=== PATIENT | female | born 2005 | race Caucasian/White ===

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

== ENCOUNTER 2024-02-18 09:16 | Emergency (ER) | payer OTHER, SELFPAY ==
[2024-02-18 09:21] VITALS: BP 129/91
[2024-02-18 10:11] VITALS: BP 141/90
[2024-02-18 10:17] VITALS: BP 141/90; BMI 25.9
--- NOTE | 2024-02-18 10:40 | ED.GENMED ---
History of Present Illness
General
Chief Complaint: Chest Pain
Source: patient
Exam Limitations: none
Time Seen by Provider: 02/18/24 10:08
Nursing documentation reviewed up to this point in time: agreed with
History of Present Illness
History of Present Illness:
18-year-old female past medical history of bipolar depression, diabetes, GERD presenting to the emergency department today with concerns of central chest pressure slightly made worse with palpation starting yesterday. Seem to improve when drinking
water yesterday recurred today. Denies similar symptoms in the past. Denies any recent trauma surgery immobilization, blood clots, leg swelling, estrogen product usage. Denies any associated shortness of breath nausea vomiting diaphoresis.
Past History
Past History
ED Past Medical History: HTN and IDDM
ED Past Surgical History: None
Social History
Tobacco: Vaping
Alcohol: Occasional
Drug: Marijuana
Personal: Single
Living: other ([facility] independent living)
Review of Systems
Review of Systems
Allergies reviewed?: Yes
All Other Systems: ROS reviewed and negative except as documented in HPI and ROS
Phy Exam
Physical Exam
Physical Exam:
GENERAL: Alert , in no apparent distress
EYE: pupils equal and reactive
NECK: Supple, no significant adenopathy.
ENT: o/p clr, mmm.
CARDIAC: Regular rate and rhythm .
LUNGS: Clear breath sounds bilaterally, no acute respiratory distress, no wheezes/rales/rhonchi
ABDOMEN: Soft, without focal tenderness, no r/g, no cvat
NEUROLOGICAL: Alert and oriented, no focal neuro deficits
SKIN: Warm and dry, skin intact.
MUSCULOSKELETAL: No edema, well perfused.
PSYCH: Normal and appropriate interaction.
Scores
Heart Score for Chest Pain Patients
STEMI patient?: No
History: Slightly or Non-Suspicious
ECG: Normal
Age: </= 45 years
Risk Factors: 1 or 2 Risk Factors
Troponin: </= Normal Limit
Heart Score for Chest Pain Patients: 1
Heart Score Risk: 2.5% MACE over next 6 weeks
Course
Orders/Labs/Results
Orders:
Orders
02/18/24 09:17
Electrocardiogram (*1) Urgent
Reason for Study: Chest Pain
EKG- Treatment ONCE
02/18/24 10:33
Mag Hydrox/Al Hydrox/Simeth [Maalox] 30 ml Phenobarb/Hyoscy/Atropine/Scop [] 10 ml PO NOW
CR Chest - 2 Views Urgent
Comment:
Reason For Exam: central cp
02/18/24 10:35
Comprehensive Metabolic Panel Urgent
Magnesium Urgent
02/18/24 10:36
Complete Blood Count/With Diff Urgent
Troponin I Urgent
02/18/24 10:40
Mag Hydrox/Al Hydrox/Simeth [Maalox] 30 ml .ROUTE .STK-MED ONE
Phenobarb/Hyoscy/Atropine/Scop [] 10 ml .ROUTE .STK-MED ONE
Abnormal Lab Results
02/18/24 02/18/24
10:35 10:36
Abs Immat Gran (auto) 0.1 H 10^3/uL
(0-0.05)
Absolute Neuts (auto) 6.8 H 10^3/uL
(1.4-6.5)
Immature Gran % 0.6 H %
(0-0.5)
Glucose 107 H mg/dl
(70-99)
AST 44 H U/L
(14-36)
ALT 76 H U/L
(0-35)
02/18/24 10:36
02/18/24 10:35
Vital Signs
Initial and Last Documented VS:
Initial Vital Signs
Temp Pulse Resp BP Pulse Ox
97.7 F 60 16 129/91 98
02/18/24 09:21 02/18/24 09:21 02/18/24 09:21 02/18/24 09:21 02/18/24 09:21
Last Documented Vital Signs
Temp Pulse Resp BP Pulse Ox
98.5 F 75 12 141/90 99
02/18/24 10:17 02/18/24 10:17 02/18/24 10:17 02/18/24 10:17 02/18/24 10:17
MDM/Problems Addressed
MDM/Problems Addressed:
18-year-old female presenting to the emergency department today with concerns of central chest pressure starting yesterday improved after drinking water yesterday but recurring today. Denies associated nausea vomiting shortness of breath
diaphoresis. No exertional component. Denies similar symptoms in the past. Denies specific palliation or provocation. Examination seems to be worse with palpation. Vital signs here are normal. Very low risk for PE and is PERC negative. EKG
normal. Labs unremarkable troponin negative. Life threats very unlikely in the circumstance. Patient did feel better after receiving GI cocktail. Patient may have a GI source. Plan for close outpatient follow-up and otherwise stable for
discharge. Return precautions given.
*Critical Care Note
Total Time (30-74mins, 75-104mins- exclusive of procedures): Not Applicable
ED Attending Note
-
Portions of this chart may have been created with voice recognition software.� Occasional wrong word or��sound alike� substitutions may have occurred due to the inherent limitations of voice recognition software.
Discharge Plan
Departure
Patient Disposition: Home (Routine Discharge)
Date of Disposition: 02/18/24
Time of Disposition: 12:53
Patient with high blood pressure during this ER visit?: No
Condition: Good
Covid-19: Not Applicable
Discharge Problem:
Chest pain, Elevated liver enzymes
Instructions: Chest Pain PCP Follow Up
Prescriptions:
New
famotidine 20 mg tablet
20 mg PO BID 4 Days Qty: 8 0RF
No Action
glipizide 5 mg Tablet
5 mg PO BID
Trulicity 4.5 mg/0.5 mL Pen Injector
4.5 mg SC MO@2200
acetaminophen [Tylenol] 325 mg Tablet
650 mg PO BIDPRN PRN (Reason: mild pain)
ketoconazole 2 % Shampoo
1 applic TOPICAL .2 TIMES A WEEK
famotidine 40 mg Tablet
40 mg PO HS
melatonin 5 mg Tablet
5 mg PO HS
glipizide 5 mg tablet
5 mg PO DAILY Qty: 30 0RF
Referrals:
Rhea Almendarez CRNP [Family Provider] -
Activity Restrictions/Additional Instructions:
You came to the emergency department with concerns of chest discomfort. You had a reassuring workup here. Please take prescribed medication follow close with the primary care doctor within 1 week. Return to the emergency department for any
worsening, new or concerning symptoms.
Interventions
Interventions:
*Risk Screen - Suicide Last Done: 02/18/24 09:23
*General Assessment Last Done: 02/18/24 10:17
*Neglect/Abuse Screening Last Done: 02/18/24 09:23
ED- Fall Risk Assessment Last Done: 02/18/24 10:17
*ED COVID-19 Vaccine History Last Done: 02/18/24 09:23
ED- Cardiac Assessment Last Done: 02/18/24 10:17
Discharge Date and Time
Print Language: YEMENI
[2024-02-18] MEDS: MAALOX 40 PO (10:43)
[2024-02-18 10:57] LABS: % Basophils 0.7 % (0-2); % Eosinophils 0.7 % (0-6); % Immature Granulocytes 0.6 % (0-0.5); % Lymphocytes 23.5 % (20.5-51.1); % Monocytes 4.9 % (1.7-9.3); % Neutrophils 69.6 % (42.2-75.2); Absolute Basophils 0.1 10^3/uL (0-0.2); Absolute Eosinophils 0.1 10^3/uL (0-0.7); Absolute Immature Granulocytes 0.1 10^3/uL (0-0.05); Absolute Lymphocytes 2.3 10^3/uL (1.2-3.4); Absolute Monocytes 0.5 10^3/uL (0.1-0.6); Absolute Neutrophils 6.8 10^3/uL (1.4-6.5); Hematocrit 42.3 % (37.0-47.0); Hemoglobin 14.5 g/dL (12.0-16.0); Mean Corp Hgb Conc. 34.3 g/dL (33.0-37.0); Mean Corpuscular Hgb 29.1 pg (27.0-31.0); Mean Corpuscular Volume 84.8 fL (81.0-99.0); Mean Platelet Volume 9.6 fL (7.4-10.4); Nucleated Red Blood Cells % 0 %; Platelet Count 273 10^3/uL (130-400); Red Blood Cell Count 4.99 10^6/uL (4.20-5.40); Red Cell Dist. Width 12.4 % (11.5-14.5); White Blood Cell Count 9.8 10^3/uL (4.8-10.8)
[2024-02-18 11:06] LABS: ALT (SGPT) 76 U/L (0-35); AST (SGOT) 44 U/L (14-36); Albumin 4.5 g/dl (3.5-5.0); Alkaline Phosphatase 78 U/L (38-126); Blood Urea Nitrogen 10 mg/dl (7-17); Calcium 9.3 mg/dl (8.4-10.2); Carbon Dioxide 25 mmol/L (22-30); Chloride 103 mmol/L (98-107); Estimated Creatinine Clearance > 125 ml/min; Glucose 107 mg/dl (70-99); Potassium 4.2 mmol/L (3.5-5.1); Sodium 140 mmol/L (135-145); Total Bilirubin 0.5 mg/dl (0.2-1.3); Total Protein 7.7 g/dl (6.3-8.2); eGFR > 60.00
[2024-02-18 11:18] LABS: Troponin I < 0.012 ng/ml
--- NOTE | 2024-02-18 12:13 | EDRN ---
the pt is resting in stretcher in the lowest position, side rails up x2, call sales within reach, HOB elevated, no s/s of distress, the pt stated to this RN that their substernal chest pain is 'gone', provider notified, will continue to monitor the
pt closely
[2024-02-18 13:11] VITALS: BP 136/71
== END 2024-02-18 13:12 | disposition home or self-care (01) ==
LOC: EMR 09:16
PROVIDERS: Physician Assistant; EMERGENCY PHYSICIAN Emergency Medicine; FAMILY PHYSICIAN Registered Nurse Pediatrics
DX: R07.89 Other chest pain (principal); R74.8 Abnormal levels of other serum enzymes; E11.9 Type 2 diabetes mellitus without complications; I10 Essential (primary) hypertension; K21.9 Gastro-esophageal reflux disease without esophagitis; F17.290 Nicotine dependence, other tobacco product, uncomplicated; Z79.4 Long term (current) use of insulin
CPT/HCPCS: 99285; 71046; 80053; 83735; 84484; 85025; 93005

== ENCOUNTER → 2024-03-09 13:40 | Outpatient (REF) | payer OTHER, SELFPAY | LOC: RAD 13:40 | PROVIDERS: ATTENDING PHYSICIAN Nurse Practitioner Family; FAMILY PHYSICIAN Pediatrics | DX: N93.9 Abnormal uterine and vaginal bleeding, unspecified (principal) | CPT/HCPCS: 76856 ==

== ENCOUNTER 2024-08-18 19:00 | Emergency (ER) | payer OTHER, SELFPAY ==
[2024-08-18 19:02] VITALS: BP 154/96
[2024-08-18 19:19] LABS: % Basophils 0.9 % (0-2); % Eosinophils 2.1 % (0-6); % Immature Granulocytes 0.6 % (0-0.5); % Lymphocytes 26.3 % (20.5-51.1); % Monocytes 6.1 % (1.7-9.3); Absolute Basophils 0.1 10^3/uL (0-0.2); Absolute Eosinophils 0.2 10^3/uL (0-0.7); Absolute Immature Granulocytes 0.1 10^3/uL (0-0.05); Absolute Lymphocytes 2.7 10^3/uL (1.2-3.4); Absolute Monocytes 0.6 10^3/uL (0.1-0.6); Absolute Neutrophils 6.6 10^3/uL (1.4-6.5); Hematocrit 40.8 % (37.0-47.0); Hemoglobin 14.4 g/dL (12.0-16.0); Mean Corp Hgb Conc. 35.3 g/dL (33.0-37.0); Mean Corpuscular Hgb 28.8 pg (27.0-31.0); Mean Corpuscular Volume 81.6 fL (81.0-99.0); Mean Platelet Volume 9.9 fL (7.4-10.4); Nucleated Red Blood Cells % 0 %; Platelet Count 255 10^3/uL (130-400); Red Cell Dist. Width 12.5 % (11.5-14.5); White Blood Cell Count 10.3 10^3/uL (4.8-10.8)
[2024-08-18 19:30] LABS: Venous Blood Gas B.E. 3.3 mmol/L (-4 to +4); Venous Blood Gas HCO3 27.8 mmol/L (22-27); Venous Blood Gas O2 Sat % 97.8 %; Venous Blood Gas pCO2 41 mmHg (35-48); Venous Blood Gas pH 7.44 (7.32-7.43); Venous Blood Gas pO2 90 mmHg (30-50)
[2024-08-18 19:32] LABS: Lactic Acid 1.3 mmol/L (0.7-2.0)
[2024-08-18 19:37] LABS: ALT (SGPT) 108 U/L (0-35); AST (SGOT) 75 U/L (14-36); Albumin 4.6 g/dl (3.5-5.0); Alkaline Phosphatase 79 U/L (38-126); Blood Urea Nitrogen 11 mg/dl (7-17); Calcium 9.7 mg/dl (8.4-10.2); Carbon Dioxide 27 mmol/L (22-30); Chloride 104 mmol/L (98-107); Glucose 198 mg/dl (70-99); Potassium 4.5 mmol/L (3.5-5.1); Sodium 139 mmol/L (135-145); Total Bilirubin 0.6 mg/dl (0.2-1.3); Total Protein 8.4 g/dl (6.3-8.2); eGFR > 60.00
[2024-08-18 19:43] LABS: B-Hydroxybutyrate 0.13 mmol/L (0.02-0.27)
--- NOTE | 2024-08-18 22:21 | ED.GENMED ---
History of Present Illness
General
Chief Complaint: Blood Sugar Problem
Source: patient
Exam Limitations: none
Time Seen by Provider: 08/18/24 21:44
Nursing documentation reviewed up to this point in time: agreed with
History of Present Illness
History of Present Illness:
The patient is a 19-year-old female who reports ongoing cough for 2 weeks. Patient denies fever. Additionally, patient reports her blood sugar has been elevated. She reports yesterday it was in the 300 range. Patient does admit that she is not
always compliant with her diabetic medication. She reports that she will call her doctor to get back on track. She denies nausea, vomiting and diarrhea. She denies rash.
Past History
Past History
ED Past Medical History: HTN, NIDDM and Psychiatric
ED Past Surgical History: Cholecystectomy
Social History
Tobacco: Vaping
Alcohol: Occasional
Drug: Marijuana
Personal: Single
Living: other ([facility] independent living)
Employment: Other
Family History
Family History: Other
Review of Systems
Review of Systems
Allergies reviewed?: Yes
All Other Systems: ROS reviewed and negative except as documented in HPI and ROS
Constitutional: Reports no symptoms
EENT: Reports no symptoms
Respiratory: Reports cough
Cardiac: Reports no symptoms
ABD/GI: Reports no symptoms
: Reports no symptoms
Musculoskeletal: Reports no symptoms
Skin: Reports no symptoms
Neurological: Reports no symptoms
Endocrine: Reports no symptoms
Hematologic/Lymphatic: Reports no symptoms
Psychiatric: Reports no symptoms
Phy Exam
Physical Exam
Physical Exam:
Physical Exam
General: no apparent distress, not acutely ill. Comfortable appearing
Neck: supple. no meningeal signs. normal psoterior pharynx
Heart: s1/s2 regular rate and rhythm, no murmur. equal radial pulses.
Lungs: no acute respiratory distress. clear bilaterally
Abdomen: normal bowel sounds. not tender. no CVAT
Neuro: alert and oriented. no focal neurological deficits
Skin: no rash
Psychiatric: well kept. interactive and cooperative
Extremities: no edema. no calf tenderness. negative homans. good distal pulses
Course
Orders/Labs/Results
Orders:
Orders
08/18/24 19:05
CR Chest - 2 Views Urgent
Comment:
Reason For Exam: cough
08/18/24 19:11
B-Hydroxybutyrate Urgent
Complete Blood Count/With Diff Urgent
Comprehensive Metabolic Panel Urgent
Lactic Acid Urgent
Venous Blood Gas Urgent
%Oxygen/Room Air: room air
08/18/24 22:20
Azithromycin [Zithromax] 500 mg PO NOW STA
Abnormal Lab Results
08/18/24
19:11
Abs Immat Gran (auto) 0.1 H 10^3/uL
(0-0.05)
Absolute Neuts (auto) 6.6 H 10^3/uL
(1.4-6.5)
Immature Gran % 0.6 H %
(0-0.5)
VBG pH 7.44 H
(7.32-7.43)
VBG pO2 90 H mmHg
(30-50)
VBG HCO3 27.8 H mmol/L
(22-27)
Glucose 198 H mg/dl
(70-99)
AST 75 H U/L
(14-36)
ALT 108 H U/L
(0-35)
Total Protein 8.4 H g/dl
(6.3-8.2)
08/18/24 19:11
08/18/24 19:11
Vital Signs
Initial and Last Documented VS:
Initial Vital Signs
Temp Pulse Resp BP Pulse Ox
97.5 F 103 20 154/96 98
08/18/24 19:02 08/18/24 19:02 08/18/24 19:02 08/18/24 19:02 08/18/24 19:02
Last Documented Vital Signs
Temp Pulse Resp BP Pulse Ox
97.5 F 103 20 154/96 98
08/18/24 19:02 08/18/24 19:02 08/18/24 19:02 08/18/24 19:02 08/18/24 22:09
MDM/Problems Addressed
Differential Diagnosis Includes:
Diabetic ketoacidosis, diabetic hyperglycemia without ketoacidosis, pneumonia
MDM/Problems Addressed:
Patient presents with 2 weeks of cough no acutely elevated blood sugar
Chronic conditions affecting care:
Diabetes
Chronic conditions affecting care: DM
Acute Exacerbation and/or Progression of Chronic Illness: DM
*Radiology
Radiology exam reviewed: preliminary read by ED provider (Possible right middle lobe pneumonia) and radiology read reviewed
*Pulse Oximetry
Patient hypoxic: no
*EKG
Interpreted by ED Provider?: NA
*Booking Agent Interpretation
Rate: Booking Agent- N/A
*Critical Care Note
Total Time (30-74mins, 75-104mins- exclusive of procedures): Not Applicable
Data Reviewed
Source: patient
Patient Management
Social determinants of health affecting care: Living situation and Strong social support
Escalation/DeEscalation of care consider admission/obs:
There is no sign of DKA on patient's blood work and patient appears extremely well and nontoxic.
ED Attending Note
-
Portions of this chart may have been created with voice recognition software.� Occasional wrong word or��sound alike� substitutions may have occurred due to the inherent limitations of voice recognition software.
Discharge Plan
Departure
Patient Disposition: Home (Routine Discharge)
Date of Disposition: 08/18/24
Time of Disposition: 22:21
Patient with high blood pressure during this ER visit?: Yes
Condition: Good
Covid-19: Not Applicable
Discharge Problem:
Pneumonia, Diabetes mellitus with hyperglycemia
Instructions: Type 2 diabetes - Discharge instructions, Pneumonia in adults - ED discharge instructions, BLOOD PRESSURE
Prescriptions:
New
azithromycin 250 mg tablet
250 mg PO DAILY 4 Days Qty: 4 0RF
No Action
glipizide 5 mg Tablet
5 mg PO BID
Trulicity 4.5 mg/0.5 mL Pen Injector
4.5 mg SC MO@2200
acetaminophen [Tylenol] 325 mg Tablet
650 mg PO BIDPRN PRN (Reason: mild pain)
ketoconazole 2 % Shampoo
1 applic TOPICAL .2 TIMES A WEEK
famotidine 40 mg Tablet
40 mg PO HS
melatonin 5 mg Tablet
5 mg PO HS
glipizide 5 mg tablet
5 mg PO DAILY Qty: 30 0RF
famotidine 20 mg tablet
20 mg PO BID 4 Days Qty: 8 0RF
Referrals:
UNKNOWN - PT DOES,NOT KNOW [Family Provider]
Activity Restrictions/Additional Instructions:
Please call your primary care doctor this Wednesday to go over your medications that you are supposed to be on and to get any prescriptions called in for you.
Interventions
Interventions:
*Risk Screen - Suicide Last Done: 08/18/24 22:27
*General Assessment Last Done: 08/18/24 19:02
*Neglect/Abuse Screening Last Done: 08/18/24 22:27
*ED COVID-19 Vaccine History Last Done: 08/18/24 22:07
*Nursing Disposition Last Done: 08/18/24 22:27
ED- Neurological Assessment Last Done: 08/18/24 22:07
Discharge Date and Time
Discharge Date/Time: 08/18/24 22:28
Print Language: LAO
[2024-08-18] MEDS: ZITHROMAX 500 MG PO (22:25)
== END 2024-08-18 22:28 | disposition home or self-care (01) ==
LOC: EMR 19:00
PROVIDERS: Emergency Medicine; EMERGENCY PHYSICIAN Emergency Medicine
DX: J18.9 Pneumonia, unspecified organism (principal); E11.65 Type 2 diabetes mellitus with hyperglycemia; I10 Essential (primary) hypertension; F17.290 Nicotine dependence, other tobacco product, uncomplicated
CPT/HCPCS: 99284; 71046; 80053; 82010; 82805; 83605; 85025

== ENCOUNTER 2024-12-16 17:54 | Emergency (ER) | payer OTHER, SELFPAY ==
[2024-12-16 17:56] VITALS: BP 149/86
[2024-12-16 18:09] LABS: Glucose - Point of Care 364 mg/dl (70-99)
[2024-12-16 18:12] LABS: Hematocrit 38.6 % (37.0-47.0); Hemoglobin 13.3 g/dL (12.0-16.0); Mean Corp Hgb Conc. 34.5 g/dL (33.0-37.0); Mean Corpuscular Volume 84.3 fL (81.0-99.0); Nucleated Red Blood Cells % 0 %; Platelet Count 229 10^3/uL (130-400); Red Cell Dist. Width 12.8 % (11.5-14.5)
[2024-12-16 18:48] LABS: ALT (SGPT) 116 U/L (0-35); AST (SGOT) 83 U/L (14-36); Albumin 4.4 g/dl (3.5-5.0); Alkaline Phosphatase 68 U/L (38-126); Blood Urea Nitrogen 13 mg/dl (7-17); Calcium 9.4 mg/dl (8.4-10.2); Carbon Dioxide 24 mmol/L (22-30); Chloride 101 mmol/L (98-107); Glucose 372 mg/dl (70-99); Potassium 4.2 mmol/L (3.5-5.1); Sodium 135 mmol/L (135-145); Total Protein 7.7 g/dl (6.3-8.2); eGFR > 60.00
[2024-12-16 18:54] LABS: Troponin I < 0.012 ng/ml
--- NOTE | 2024-12-16 19:33 | ED.GENMED ---
History of Present Illness
General
Chief Complaint: Numbness
Source: patient
Time Seen by Provider: 12/16/24 19:19
History of Present Illness
History of Present Illness:
19-year-old patient presents emergency department because her glucometer was alarming that her blood sugar was elevated since last night. She states it has been in the 300s although it read 'high' last night, has been in the 300s throughout the day
today. She actually turned the monitor off because she did not want to hear it anymore. Then, about an hour or so prior to presentation she developed tingling in the inner aspect of her right forearm, now fully resolved associated with a vague
chest discomfort in the center of her chest also now fully resolved. Chest pain was not pleuritic in nature, was nonradiating, without exacerbating relieving factors. She denies associated nausea, vomiting, headache, dizziness, dyspnea, back pain,
neck pain, abdominal pain. She denies focal weakness, change in speech, change in vision, clumsiness, or other complaints. Good patient does note that she missed her Mounjaro shot yesterday because she forgot to take it.
Past History
Past History
ED Past Medical History: HTN, NIDDM and Psychiatric
ED Past Surgical History: Cholecystectomy
Social History
Tobacco: Vaping
Alcohol: Occasional
Drug: Marijuana
Personal: Single
Living: other ([facility] independent living)
Employment: Other
Family History
Family History: Other
Phy Exam
Physical Exam
Physical Exam:
GENERAL: Alert , in no apparent distress
EYE: pupils equal and reactive
NECK: Supple, no significant adenopathy.
ENT: o/p clr, mmm.
CARDIAC: Regular rate and rhythm .
LUNGS: Clear breath sounds bilaterally, no acute respiratory distress, no wheezes/rales/rhonchi
ABDOMEN: Soft, without focal tenderness, no r/g, no cvat
NEUROLOGICAL: Alert and oriented, no focal neuro deficits, motor 5 out of 5, sensory intact to light touch, cranial nerves II through XII intact, [id number] normal
SKIN: Warm and dry, skin intact.
MUSCULOSKELETAL: No edema, well perfused.
PSYCH: Normal and appropriate interaction.
Course
Orders/Labs/Results
Orders:
Orders
12/16/24 17:59
EKG [Electrocardiogram (*1)] Urgent
Reason for Study: Tachycardia
12/16/24 18:00
EKG- Treatment ONCE
12/16/24 18:06
B-Hydroxybutyrate Urgent
Complete Blood Count/With Diff Urgent
Comprehensive Metabolic Panel Urgent
Troponin I Urgent
12/16/24 19:33
0.9% Sodium Chloride 1000 ml [Nss] 1,000 ml IV BOLUS
Abnormal Lab Results
12/16/24 12/16/24 12/16/24
18:05 18:06 21:40
Abs Immat Gran (auto) 0.1 H 10^3/uL
(0-0.05)
Immature Gran % 0.7 H %
(0-0.5)
Creatinine 0.5 L mg/dL
(0.6-1.0)
Glucose 372 H mg/dl
(70-99)
AST 83 H U/L
(14-36)
ALT 116 H U/L
(0-35)
POC Glucose 364 H mg/dl 212 H mg/dl
(70-99) (70-99)
12/16/24 18:06
12/16/24 18:06
Vital Signs
Initial and Last Documented VS:
Initial Vital Signs
Temp Pulse Resp BP Pulse Ox
98.3 F 94 16 149/86 96
12/16/24 17:56 12/16/24 17:56 12/16/24 17:56 12/16/24 17:56 12/16/24 17:56
Last Documented Vital Signs
Temp Pulse Resp BP Pulse Ox
98.6 F 89 28 145/77 97
12/16/24 19:45 12/16/24 22:00 12/16/24 22:00 12/16/24 22:00 12/16/24 22:00
*Pulse Oximetry
SaO2: 96
Oxygen Mode of Delivery: Room air
Patient hypoxic: no
*Critical Care Note
Total Time (30-74mins, 75-104mins- exclusive of procedures): Not Applicable
Update Note
Update Note:
Patient presents to the Emergency Department with hyperglycemia, arm numbness, chest pain
Number and Complexity of Problems Addressed at the Encounter
� Chronic conditions affecting care:
� Acute Exacerbation and/or Progression of Chronic Illness:
� Differential Diagnosis includes: But not limited to hyperglycemia, DKA, electrolyte disorder, musculoskeletal pain, PE, ACS, etc. etc.
Amount and/or Complexity of Data to be Reviewed and Analyzed
� I performed an independent evaluation of and my interpretation is:
EKG: Read by me, normal sinus rhythm, normal rate, normal axis, no acute ischemia
CT:
Xrays:
Laboratory Studies: Generally unremarkable with exception of hyperglycemia, glucose equal to 372, no associated anion gap, beta hydroxybutyrate within normal limits, nonspecific but baseline LFT abnormalities
Other:
� Review of other/old records reveals:
� Clinical information was obtained by an independent historian:
� Prescriptions/Medications Considered but not given:
� Further testing considered but not performed:
Risk of Complications and/or Morbidity or Mortality of Patient Management
� Social determinants of health affecting care:
� Discussion with other providers (PCP, Hospitalists, Consultants, etc):
� Escalation of care including admission/observation vs risk of discharge considered: Repeat blood sugar 212. Patient asymptomatic, laughing and joking with RN and friend who is bedside. Discussed with patient importance of
close monitoring of her blood sugar, hydration, follow-up, and reasons to return to the ER. Given nonspecific symptoms, ECG, exam, etc. highly doubt more serious etiology of chest pain and numbness such as ACS, PE, TIA, etc.
ED Attending Note
-
Portions of this chart may have been created with voice recognition software.� Occasional wrong word or��sound alike� substitutions may have occurred due to the inherent limitations of voice recognition software.
Discharge Plan
Departure
Patient Disposition: Home (Routine Discharge)
Date of Disposition: 12/16/24
Time of Disposition: 22:25
Patient with high blood pressure during this ER visit?: Yes
Condition: Good
Discharge Problem:
Hyperglycemia
Instructions: High blood sugar in adults - ED (DC), BLOOD PRESSURE
Prescriptions:
No Action
glipizide 5 mg Tablet
5 mg PO BID
Trulicity 4.5 mg/0.5 mL Pen Injector
4.5 mg SC MO@2200
acetaminophen [Tylenol] 325 mg Tablet
650 mg PO BIDPRN PRN (Reason: mild pain)
ketoconazole 2 % Shampoo
1 applic TOPICAL .2 TIMES A WEEK
famotidine 40 mg Tablet
40 mg PO HS
melatonin 5 mg Tablet
5 mg PO HS
glipizide 5 mg tablet
5 mg PO DAILY Qty: 30 0RF
famotidine 20 mg tablet
20 mg PO BID 4 Days Qty: 8 0RF
azithromycin 250 mg tablet
250 mg PO DAILY 4 Days Qty: 4 0RF
Referrals:
Brendan Alexander MD [Family Provider, Pediatrics] - Follow up in 2-3 days
Activity Restrictions/Additional Instructions:
PLEASE SEE YOUR DIABETES DOCTOR AND FAMILY DOCTOR EARLY THIS WEEK. IF YOUR BLOOD SUGAR IS ABNORMALLY ELEVATED OR YOU DEVELOP VOMITING, RECURRENT CHEST PAIN, ANY SHORTNESS OF BREATH, SWELLING, CHANGE IN VISION, OR OTHER WORRISOME SIGNS, PLEASE
RETURN TO THE ER IMMEDIATELY!
Interventions
Interventions:
*Risk Screen - Suicide Last Done: 12/16/24 17:56
*General Assessment Last Done: 12/16/24 17:56
*Neglect/Abuse Screening Last Done: 12/16/24 17:56
*ED- Fall Risk Assessment Last Done: 12/16/24 17:56
*ED COVID-19 Vaccine History Last Done: 12/16/24 17:56
ED- Neurological Assessment Last Done: 12/16/24 19:52
Discharge Date and Time
Print Language: YI
[2024-12-16 19:35] VITALS: BMI 51.3
[2024-12-16 19:45] VITALS: BP 121/61
[2024-12-16] MEDS: NSS 1000 IV (19:46)
[2024-12-16 19:50] VITALS: BP 141/73
[2024-12-16 20:00] VITALS: BP 116/52
[2024-12-16 21:00] VITALS: BP 135/48
[2024-12-16 21:41] LABS: Glucose - Point of Care 212 mg/dl (70-99)
[2024-12-16 22:00] VITALS: BP 145/77
== END 2024-12-16 22:35 | disposition home or self-care (01) ==
LOC: EMR 17:54
PROVIDERS: Emergency Medicine; EMERGENCY PHYSICIAN Emergency Medicine; FAMILY PHYSICIAN Pediatrics
DX: E11.65 Type 2 diabetes mellitus with hyperglycemia (principal); I10 Essential (primary) hypertension; F17.290 Nicotine dependence, other tobacco product, uncomplicated; Z79.85 Long-term (current) use of injectable non-insulin antidiabetic drugs; Z79.84 Long term (current) use of oral hypoglycemic drugs; T38.3X6A Underdosing of insulin and oral hypoglycemic [antidiabetic] drugs, initial encounter; Z91.128 Patient's intentional underdosing of medication regimen for other reason
CPT/HCPCS: 99284; 96360; 96361; 80053; 82010; 82962; 84484; 85025; 93005

== ENCOUNTER 2024-12-24 18:19 | Emergency (ER) | payer OTHER, SELFPAY ==
[2024-12-24 18:22] VITALS: BP 144/94
[2024-12-24 19:32] LABS: Glucose - Point of Care 124 mg/dl (70-99)
--- NOTE | 2024-12-24 20:11 | ED.GENMED ---
History of Present Illness
General
Chief Complaint: Skin Problem
Time Seen by Provider: 12/24/24 18:47
History of Present Illness
History of Present Illness:
19-year-old female with history of psoriasis and diabetes presenting to the emergency department for inflammation to her arms. Patient notes that she took her first injection of Taltz 10 days ago. The medication was prescribed by her
head irrigator. For the first dose, she had to give an injection in both arms, and then following injections her every other arm per dose. She reports that today she noticed that her arms were inflamed, bilateral upper extremities. Notes some
chills, denies fever. Also reports some generalized dizziness. Denies chest pain or difficulty breathing. Denies additional acute medical complaints
Past History
Past History
ED Past Medical History: HTN, NIDDM and Psychiatric
ED Past Surgical History: Cholecystectomy
Social History
Tobacco: Vaping
Alcohol: Occasional
Drug: Marijuana
Personal: Single
Living: other ([facility] independent living)
Employment: Other
Family History
Family History: Other
Phy Exam
Physical Exam
Physical Exam:
General: Well-appearing, no clinical signs of dehydration, nontoxic and in no acute distress
HEENT: protecting airway
Neck: appears supple
CV: Normal heart rate
Resp: No accessory muscle use, no increased work of breathing
Abd: No distention
Extremities: No deformities, no swelling. Circumferential erythema at bilateral upper extremities with inflammation, no fluctuance. No significant tenderness
Neuro: alert, no focal neurologic deficit
: deferred
Rectal: deferred
Psych: Normal affect
Skin: Intact
Course
Orders/Labs/Results
Orders:
Abnormal Lab Results
12/24/24
19:30
POC Glucose 124 H mg/dl
(70-99)
12/24/24 19:24
Vital Signs
Initial and Last Documented VS:
Initial Vital Signs
Temp Pulse Resp BP Pulse Ox
98.8 F 114 17 144/94 97
12/24/24 18:22 12/24/24 18:22 12/24/24 18:22 12/24/24 18:22 12/24/24 18:22
Last Documented Vital Signs
Temp Pulse Resp BP Pulse Ox
98.8 F 114 17 144/94 97
12/24/24 18:22 12/24/24 18:22 12/24/24 18:22 12/24/24 18:22 12/24/24 18:22
MDM/Problems Addressed
MDM/Problems Addressed:
19-year-old female presenting to the emergency department for concern of injection reaction to her Taltz. Vital signs significant for mild tachycardia.
On exam, patient is resting comfortably, no acute distress, nontoxic. Patient has circumferential erythema and swelling at injection site with suspicion for mild injection reaction. No fluctuance or concern for abscess. No significant swelling to
the upper extremities, without concern for systemic response. Patient without any airway compromise, no respiratory symptoms. No concern for severe allergic reaction. Given the erythema, will start patient on antibiotic for possible developing
cellulitis. Otherwise feel stable for discharge with close interval follow-up with her head irrigator regarding cessation or continuation of her medication, with next dose due in 3 days. Return precautions discussed and patient verbalized
understanding
*Pulse Oximetry
SaO2: 97
Oxygen Mode of Delivery: Room air
Patient hypoxic: no
*Critical Care Note
Total Time (30-74mins, 75-104mins- exclusive of procedures): Not Applicable
ED Attending Note
-
Portions of this chart may have been created with voice recognition software.� Occasional wrong word or��sound alike� substitutions may have occurred due to the inherent limitations of voice recognition software.
Discharge Plan
Departure
Prescriptions:
No Action
glipizide 5 mg Tablet
5 mg PO BID
Trulicity 4.5 mg/0.5 mL Pen Injector
4.5 mg SC MO@2200
acetaminophen [Tylenol] 325 mg Tablet
650 mg PO BIDPRN PRN (Reason: mild pain)
ketoconazole 2 % Shampoo
1 applic TOPICAL .2 TIMES A WEEK
famotidine 40 mg Tablet
40 mg PO HS
melatonin 5 mg Tablet
5 mg PO HS
glipizide 5 mg tablet
5 mg PO DAILY Qty: 30 0RF
famotidine 20 mg tablet
20 mg PO BID 4 Days Qty: 8 0RF
azithromycin 250 mg tablet
250 mg PO DAILY 4 Days Qty: 4 0RF
Referrals:
UNKNOWN - PT DOES,NOT KNOW [Family Provider]
Interventions
Interventions:
*Risk Screen - Suicide Last Done: 12/24/24 18:25
*General Assessment Last Done: 12/24/24 18:25
*Neglect/Abuse Screening Last Done: 12/24/24 18:25
*ED COVID-19 Vaccine History Last Done: 12/24/24 18:25
*ED Influenza Vaccine History Last Done: 12/24/24 18:25
Discharge Date and Time
Print Language: YORUBA
== END 2024-12-24 20:26 | disposition home or self-care (01) ==
LOC: EMR 18:19
PROVIDERS: EMERGENCY PHYSICIAN Student in an Organized Health Care Education/Training Program
DX: L53.9 Erythematous condition, unspecified (principal); T80.89XA Other complications following infusion, transfusion and therapeutic injection, initial encounter; X58.XXXA Exposure to other specified factors, initial encounter; L40.9 Psoriasis, unspecified; E11.9 Type 2 diabetes mellitus without complications; I10 Essential (primary) hypertension; F17.290 Nicotine dependence, other tobacco product, uncomplicated
CPT/HCPCS: 99283; 82962